=== PATIENT | female | born 1980 | race Caucasian/White ===

== ENCOUNTER 2020-03-30 09:54 | Outpatient (CLI) | payer OTHER, SELFPAY | END 2020-03-30 09:55 | disposition home or self-care (01) | LOC: ANHBWCAUD 09:55 | PROVIDERS: PCP Family Medicine; Visit Provider Family Medicine | DX: H90.3 Sensorineural hearing loss, bilateral (principal) | CPT/HCPCS: 92557; 92567 ==

== ENCOUNTER 2020-04-20 09:02 | Outpatient (RCR) | payer OTHER, SELFPAY | END 2020-07-19 23:59 | disposition home or self-care (01) | LOC: ANHBWCAUD 09:02 | PROVIDERS: PCP Family Medicine; Visit Provider Family Medicine | DX: Z46.1 Encounter for fitting and adjustment of hearing aid (principal) | CPT/HCPCS: V5160; V5261 ==

== ENCOUNTER 2020-09-02 13:55 | Outpatient (RCR) | payer OTHER, SELFPAY | END 2020-12-01 23:59 | disposition home or self-care (01) | LOC: ANHBWCAUD 13:55 | PROVIDERS: PCP Family Medicine; Visit Provider Family Medicine | DX: Z46.1 Encounter for fitting and adjustment of hearing aid (principal) | CPT/HCPCS: 99199 ==

== ENCOUNTER 2021-03-01 12:45 | Outpatient (RCR) | payer OTHER, SELFPAY | END 2021-05-30 23:59 | disposition home or self-care (01) | LOC: ANHBWCAUD 12:45 | PROVIDERS: PCP Family Medicine; Visit Provider Family Medicine | DX: Z46.1 Encounter for fitting and adjustment of hearing aid (principal) | CPT/HCPCS: 99199 ==

== ENCOUNTER 2024-06-18 11:22 | Outpatient (RCR) | payer OTHER, SELFPAY | END 2024-09-16 23:59 | disposition home or self-care (01) | LOC: ANHBWCAUD 11:22 | PROVIDERS: PCP Family Medicine; Visit Provider Family Medicine | DX: Z46.1 Encounter for fitting and adjustment of hearing aid (principal) | CPT/HCPCS: V5014 ==

== ENCOUNTER 2024-08-21 17:27 | Emergency (ER) | payer OTHER, SELFPAY ==
--- NOTE | 2024-08-21 17:29 | ED_ITS ---
HPI - Ear Problem General Chief complaint: Ear Stated complaint: Ear Pain Time Seen by Provider: 08/21/24 17:41 Source: patient and RN notes reviewed Mode of arrival: ambulatory Limitations: no limitations History of Present Illness HPI Narrative: 43-year-old female presents to the [facility] with left ear pain that started today. Reports a runny nose. States that she does not take anything that is [id number] because it does not work. Has a history of seasonal allergies Treatment prior to arrival: none Related Data Allergies Allergy/AdvReac Type Severity Reaction Status Date / Time No Known Allergies Allergy Unverified 08/21/24 17:43 Review of Systems Review of Systems: All systems reviewed & are unremarkable except as noted in HPI and below Constitutional: Constitutional: Reports no additional constitutional complaints ENT: Reports as per HPI, Reports otalgia and Reports nasal discharge Cardiovascular: Cardiovascular: Reports no additional cardiovascular complaints, Denies chest pain and Denies dyspnea Respiratory: Respiratory: Reports no additional respiratory complaints, Denies chest congestion, Denies cough and Denies dyspnea Musculoskeletal: Musculoskeletal: Reports no additional musculoskeletal complaints Integumentary/Breasts: Skin/Breast: Reports system reviewed and no additional complaints, except as docu PMFSH Surgical History Surgical History (Updated 08/21/24 @ 19:17 by Christie Bettencourt, DEO) History of appendectomy History of tonsillectomy and adenoidectomy Comments At the time of my signature, I reviewed and agree with the nursing past medical, surgical, social, and family history. There is no relevant family history pertinent to the patient complaint. Exam Const: General: cooperative, healthy appearing, comfortable, no acute distress, well developed, alert and well nourished Nutritional Appearance: well nourished and obese Orientation/consciousness: patient oriented x3 Limitations: no limitations HENMT: Head: normal to inspection Ears: hearing grossly normal bilaterally, external ears normal, TM normal on the right, mastoids normal, no periauricular adenopathy and Abnormal EAC present (Left) erythema, edema and EAC tenderness Face/Nose/Sinus: Normal external nose present, Normal nares present and Nasal discharge present clear bilateral Mouth: Yes Normal oral and palatal mucosa present, Yes lip normal, Yes tongue normal and Yes moist mucous membranes Throat: posterior oropharynx normal, uvula midline, postnasal drainage, tonsils absent and no uvular edema Eyes: General: appearance normal, both eyes and all related structures Alignment and Position: alignment normal Neck: Neck: normal visual inspection, full ROM, no lymphadenopathy and no meningeal signs Chest: Chest palpation & inspection: normal inspection of the chest Resp: Effort & Inspection: normal respiratory effort and able to speak in complete sentences Cardio: Rate: regular rate Skin: General skin exam: normal color and no rashes or lesions noted Neuro: General: patient oriented x3, gait normal, moves all extremities and no meningeal signs Cognition (Neuro): normal cognition Speech: normal speech Gait exam (Neuro): Normal gait present Extrem: General: normal to inspection, full ROM, capillary refill normal and normal gait Psych: Appearance: grossly normal and well kempt Mental Status: mental status grossly normal Speech and movement: Normal speech and movement present and Clear speech present Affect: normal affect Attitude: cooperative Course Course Level of Care: Express Care Visit Vital Signs Vital signs: Vital Signs Temperature 97.6 F 08/21/24 17:35 Pulse Rate 82 08/21/24 17:35 Respiratory Rate 16 08/21/24 17:35 Blood Pressure 131/61 08/21/24 17:35 Pulse Oximetry 97 08/21/24 17:35 Oxygen Delivery Room Air 08/21/24 17:35 Temperature 97.6 F 08/21/24 17:35 Pulse Rate 82 08/21/24 17:35 Respiratory Rate 16 08/21/24 17:35 Blood Pressure 131/61 08/21/24 17:35 Pulse Oximetry 97 08/21/24 17:35 Oxygen Delivery Room Air 08/21/24 17:35 Reviewed Medical Decision Making MDM Narrative Medical decision making narrative: Patient sitting comfortably in exam room. Nontoxic, vitals stable. Patient in no acute distress Patient presents for left ear discomfort and a runny nose. Symptoms started today. No treatment prior to arrival Left ear without acute findings, left ear TM intact without erythema, mild inflammation and mild redness noted to the ear canal. Patient appropriate for outpatient treatment with close follow-up Discharge instructions reviewed with patient, as well as provided in writing per nursing staff. The instructions also include specific and strict return/GO TO THE ER as well as f/u information. All questions have been answered, and the patient deny any further questions with discharge and discharge plan. Some parts of this dictation were generated by voice recognition software and may contain typographical and/or grammatical inaccuracies. Differential Diagnosis Differential Diagnosis: Otitis media, serous otitis, otitis externa Medical Records Medical records reviewed: Yes I reviewed the external patient's medical records. Vital Signs Vital Signs: Vital Signs Temperature 97.6 F 08/21/24 17:35 Pulse Rate 82 08/21/24 17:35 Respiratory Rate 16 08/21/24 17:35 Blood Pressure 131/61 08/21/24 17:35 Pulse Oximetry 97 08/21/24 17:35 Oxygen Delivery Room Air 08/21/24 17:35 Temperature 97.6 F 08/21/24 17:35 Pulse Rate 82 08/21/24 17:35 Respiratory Rate 16 08/21/24 17:35 Blood Pressure 131/61 08/21/24 17:35 Pulse Oximetry 97 08/21/24 17:35 Oxygen Delivery Room Air 08/21/24 17:35 Reviewed Lab Data Lab results reviewed: Yes I reviewed the patient's lab results. Labs: Reviewed Critical Care Time Critical Care Time Critical Care Time: No Discharge Plan Discharge Clinical Impression: Otitis externa Patient Disposition: Home Condition: Stable Instructions: Antibiotic Form, Swimmer's Ear (ED) Additional Instructions: Stop using Q-tips When you remove your hearing aids please wiped down with an alcohol pad. Follow-up with your primary care provider this week For new or worsening symptoms go directly to the emergency room Patient Language: Lebanese Prescriptions: New ciprofloxacin-dexamethasone 0.3-0.1 % drops,suspension 5 drp LEFT EAR Q12H 7 Days Qty: 7.5 0RF Follow-up/Referrals: UNKNOWN,DOCTOR [Non-Staff] - Stand Alone Forms: Work/School Release IP Time of Disposition: 17:51
[2024-08-21 17:35] VITALS: BP 131/61; PULSE 82; RESP 16; TEMP 36.4; O2SAT 97
== END 2024-08-21 17:53 | disposition home or self-care (01) ==
PROVIDERS: Emergency Provider Nurse Practitioner
DX: H60.92 Unspecified otitis externa, left ear (principal)
CPT/HCPCS: 99213; G0463

== ENCOUNTER 2024-10-16 07:29 | Emergency (ER) | payer OTHER, SELFPAY ==
--- NOTE | ~2024-10-16 | XR_ITS ---
XR chest 2V Ordering provider: ISOTOPE HYDROLOGIST PHYSICIAN History: 44 years Female with . chest pain, sob . Comparison: None. FINDINGS: MEDIASTINUM: The cardiac silhouette is not enlarged. LUNGS: No infiltrates, effusions or pneumothorax. OTHER: No free air under the diaphragm. IMPRESSION: No acute cardiopulmonary pathology. Reviewed, dictated and finalized at location A.
--- NOTE | ~2024-10-16 | US_ITS ---
EXAMINATION: US venous doppler [facility] DATE: 10/16/2024 10:18 INDICATION: Bilateral lower limb pain and swelling TECHNIQUE: Grayscale ultrasound images without and with compression and Doppler ultrasound images of the bilateral lower extremity veins were obtained. COMPARISON: None. FINDINGS: The visualized portions of right common femoral vein, profunda (deep) femoral vein, femoral vein, pop liteal vein, posterior tibial veins, peroneal veins and greater saphenous vein outflow are patent. The visualized portions of left common femoral vein, profunda femoral vein, femoral vein, popliteal v ein, posterior tibial veins, peroneal veins and greater saphenous vein outflow are patent. IMPRESSION: 1. No deep venous thrombosis in either lower limb. Reviewed, dictated and finalized at location A.
--- NOTE | 2024-10-16 07:34 | ECG_ITS ---
Test Date: 2024-10-16 07:39:50 Measurements Intervals [place] Rate: 83 P: 22 MA: 131 QRS: -15 QRSD: 101 T: 45 QT: 371 QTc: 437 Interpretive Statements SINUS RHYTHM MINIMAL Q WAVES- LAT/HIGH LAT LEADS BASELINE ARTIFACT- I, II, III, AVR, AVL, AVF BORDERLINE ECG No previous ECG available for comparison Electronically Signed On 10-16-2024 07:47:15 CDT by Esteban Lopez D.O.
[2024-10-16 07:36] VITALS: BP 134/63; PULSE 83; RESP 16; TEMP 36.5; O2SAT 96
[2024-10-16 07:42] VITALS: O2SAT 96
[2024-10-16] MEDS: ASPIRIN 81 MG CHEWABLE TABLET 324 MG PO (07:47)
--- NOTE | 2024-10-16 07:48 | PC.NURSE ---
pt reports having been hiking recently and finding many ticks throughout body, having found one in my hair just this morning
[2024-10-16 07:56] LABS: Basophils Percent Auto 0.2 % (0.2-1.2); Eosinophils Absolute Auto 0.2 K/mm3 (0-0.3); Eosinophils Percent Auto 1.9 % (0-4.4); Hematocrit 45.5 % (37.0-47.0); Hemoglobin 14.9 g/dL (12.0-15.0); Immature Granulocyte Percent A 0.8 % (0-0.5); Lymphocytes Absolute Auto 2.86 K/mm3 (0.9-3.2); Lymphocytes Percent Auto 23.1 % (18.3-44.2); Mean Corpuscular HGB Conc 32.7 g/dl (32-36); Mean Corpuscular Hemoglobin 29.1 pg (26-34); Mean Corpuscular Volume 88.9 fl (80-100); Mean Platelet Volume 11.6 fl (7.4-10.4); Monocytes Absolute Auto 0.9 K/mm3 (0.1-0.6); Monocytes Percent Auto 7.5 % (2.6-8.5); Neutrophils Absolute Auto 8.2 K/mm3 (1.3-6.7); Neutrophils Percent Auto 66.5 % (45.5-73.1); Platelet Count Result 226 k/mm3 (150-375); Red Blood Count 5.12 M/mm3 (4.2-5.4); Red Cell Distribution Width 14.4 % (11.5-14.5); White Blood Count 12.4 K/mm3 (4.5-10.0)
[2024-10-16 08:06] LABS: Alanine Aminotransferase 76 U/L (6-35); Alkaline Phosphatase 93 U/L (38-126); Anion Gap 9 mmol/L (4-12); Aspartate Amino Transferase 63 U/L (14-36); Bilirubin,Total 0.3 mg/dL (0.2-1.3); Blood Urea Nitrogen 16 mg/dL (7-17); Calcium 8.8 mg/dL (8.4-10.2); Carbon Dioxide 25 mmol/L (22-30); Chloride 106 mmol/L (98-107); Estimated CRCL calculation 117 ml/min; Estimated Glomerular Filt Rate > 60; Glucose 105 mg/dL (65-110); Lipase 38 U/L (23-300); Potassium 3.9 mmol/L (3.4-5.0); Sodium 140 mmol/L (137-145); Total Protein 6.9 g/dL (6.3-8.2)
--- NOTE | 2024-10-16 08:11 | ED_ITS ---
HPI - Chest Pain General Chief Complaint: Chest Pain Stated Complaint: chest pain Time Seen by Provider: 10/16/24 08:11 Source: patient Mode of arrival: ambulatory Limitations: no limitations History of Present Illness HPI narrative: 44 years old white female drove herself to the emergency room complaining of pain in both feet. Patient is telling me that she was camping, sprained left ankle, 1 day later she have a swelling legs from knees down bilaterally, went [facility] and was diagnosed of edema secondary to gravity, 1 day later got dizzy with lightheadedness went back [facility], was not happy and signed against medical advice, later started having left upper chest pain not feeling well, went to [facility] yesterday and was told everything looks good, drove herself to our emergency room today because of pain both feet. Currently She denies any fever, chills, nausea, vomiting, chest pain, or shortness of breath Related Data Allergies Allergy/AdvReac Type Severity Reaction Status Date / Time No Known Allergies Allergy Unverified 08/21/24 17:43 Review of Systems 2 Review of Systems: All systems reviewed & are unremarkable except as noted in HPI and below PMFSH Surgical History Surgical History History of appendectomy History of tonsillectomy and adenoidectomy Exam 2 Narrative: General appearance: Well-developed, well-nourished Skin: Normal color, 1+ edema lower extremity bilaterally up to the knees Head: Normocephalic, nontraumatic Eyes: Clear conjunctiva ENT: Oropharynx normal, ears normal, nose normal Neck: Supple, nontender Chest and respiratory: Airway patent, no respiratory distress, no accessory muscle use Heart: Regular rate/rhythm Abdomen: Soft, nontender, no organomegaly, quiet bowel sounds Vascular: Normal peripheral pulses, normal capillary refill. Musculoskeletal: Normal range of motion, nontender back Neurologic: Alert and oriented ?3, WELDING MACHINE SETTER is normal as tested, no gross motor deficit Course Course Emergency Course: Patient came with multiple symptoms, has been to 3 emergency rooms in the last 4 days, Vital signs are stable Physical examination positive for 1+ edema lower extremity bilaterally otherwise insignificant except morbidly obese Differential diagnosis include leg edema, congestive heart failure, deep vein thrombosis, pulmonary embolism, anxiety like symptoms, electrolyte imbalance, dehydration Blood workup today includes CBC, CMP, troponin, D-dimer, pro BMP showed Chest x-ray showed EKG showed Vital Signs Vital signs: Vital Signs Temperature 36.5 C 10/16/24 07:36 Pulse Rate 83 10/16/24 07:36 Respiratory Rate 16 10/16/24 07:36 Blood Pressure 134/63 10/16/24 07:36 Pulse Oximetry 96 10/16/24 07:36 Oxygen Delivery Room Air 10/16/24 07:36 Temperature 36.5 C 10/16/24 07:36 Pulse Rate 86 10/16/24 11:49 Respiratory Rate 18 10/16/24 11:49 Blood Pressure 147/72 H 10/16/24 11:49 Pulse Oximetry 98 10/16/24 11:49 Oxygen Delivery Room Air 10/16/24 07:42 MDM - Chest Pain MDM Narrative Medical decision making narrative: Patient came with feet pain and swelling legs Vital signs are stable Physical examination showing 1+ edema lower extremity bilaterally, morbidly obese Differential diagnosis include dependent edema, congestive heart failure, renal failure, hepatic failure, deep vein thrombosis, electrolyte imbalance, dehydration Blood workup today includes CBC, CMP, troponin, pro BMP, D-dimer showed WBC 12.4, D-dimer 0.5 AST 63, ALT 76, pro BMP 156 Chest x-ray showed no acute abnormality Venous Doppler bilaterally of the lower extremity showed no deep vein thrombosis Diagnosis dependent edema, The pt was discharged to home.the pt,s condition upon discharge was fair,education was provided to the pt in reference to the final impression,discharge study results,treatment,prognosis and need for follow up . Lab Data 10/16/24 07:51 10/16/24 07:51 Labs: Lab Results 10/16/24 10/16/24 Range/Units 07:51 11:08 WBC 12.4 H (4.5-10.0) K/mm3 RBC 5.12 (4.2-5.4) M/mm3 Hgb 14.9 (12.0-15.0) g/dL Hct 45.5 (37.0-47.0) % MCV 88.9 (80-100) fl MCH 29.1 (26-34) pg MCHC 32.7 (32-36) g/dl RDW 14.4 (11.5-14.5) % Plt Count 226 (150-375) k/mm3 MPV 11.6 H (7.4-10.4) fl Immature Gran % (Auto) 0.8 H (0-0.5) % Neut % (Auto) 66.5 (45.5-73.1) % Lymph % (Auto) 23.1 (18.3-44.2) % [place] % (Auto) 7.5 (2.6-8.5) % Eos % (Auto) 1.9 (0-4.4) % Baso % (Auto) 0.2 (0.2-1.2) % Lymph # (Auto) 2.86 (0.9-3.2) K/mm3 [place] # (Auto) 0.9 H (0.1-0.6) K/mm3 Eos # (Auto) 0.2 (0-0.3) K/mm3 Baso # (Auto) 0.0 (0.0-0.1) K/mm3 Abs Immat Gran (auto) 0.10 H (0.00-0.031) K/mm3 Absolute Neuts (auto) 8.2 H (1.3-6.7) K/mm3 Absolute Nucleated RBC 0.000 (0.0-0.012) K/mm3 Nucleated RBC % 0.0 (0.0-0.2) % PT 11.6 (11.1-14.7) Seconds INR 0.8 APTT 32.6 (22.3-36.8) Seconds D-Dimer 0.50 H (<0.48) ug/mL Sodium 140 (137-145) mmol/L Potassium 3.9 (3.4-5.0) mmol/L Chloride 106 (98-107) mmol/L Carbon Dioxide 25 (22-30) mmol/L Anion Gap 9 (4-12) mmol/L BUN 16 (7-17) mg/dL Creatinine 0.91 (0.7-1.0) mg/dL Estim Creat Clear Calc 117 ml/min Estimated GFR > 60 (59 - ) Glucose 105 (65-110) mg/dL Calcium 8.8 (8.4-10.2) mg/dL Total Bilirubin 0.3 (0.2-1.3) mg/dL AST 63 H (14-36) U/L ALT 76 H (6-35) U/L Alkaline Phosphatase 93 (38-126) U/L Troponin I < 0.012 < 0.012 (0.000-0.034) ng/mL NT-Pro-B Natriuret Pep 156 H (19.9-100) pg/mL Total Protein 6.9 (6.3-8.2) g/dL Albumin 4.0 (3.5-5.1) g/dL Lipase 38 (23-300) U/L Discharge Plan Discharge Clinical Impression: Dependent edema Patient Disposition: Home Condition: Stable Instructions: Edema (ED) Additional Instructions: Return if symptoms are worsening , call your family physician for appointment, take Tylenol as as needed for aches and pain, continue home medications. Keep leg elevated, compression stocking Patient Language: Sami Prescriptions: No Action ciprofloxacin-dexamethasone 0.3-0.1 % drops,suspension 5 drp LEFT EAR Q12H 7 Days Qty: 7.5 0RF Follow-up/Referrals: PHYSICIAN,BICYCLE DESIGNER [Primary Care Provider] - Janes Lux MD [Physician] - 10/20/24
--- NOTE | 2024-10-16 08:16 | PC.NURSE ---
lab called to add on BNP and D Dimer
[2024-10-16 08:18] LABS: Troponin I < 0.012 ng/mL (0.000-0.034)
[2024-10-16 08:42] LABS: INR 0.8; Prothrombin Time 11.6 Seconds (11.1-14.7)
[2024-10-16 08:43] LABS: NT Pro B Type Natriuretic Pept 156 pg/mL (19.9-100)
[2024-10-16 08:44] LABS: Partial Thromboplastin Time 32.6 Seconds (22.3-36.8)
--- NOTE | 2024-10-16 10:58 | ECG_ITS ---
Test Date: 2024-10-16 11:02:31 Measurements Intervals [place] Rate: 74 P: 62 NV: 147 QRS: -8 QRSD: 106 T: 55 QT: 409 QTc: 456 Interpretive Statements SINUS RHYTHM INCOMPLETE RIGHT BUNDLE BRANCH BLOCK MINIMAL Q WAVES- ANTEROLAT/HIGH LAT LEADS CONSIDER INFERIOR INFARCT, AGE INDETERMINATE BASELINE ARTIFACT- I, III, AVR, AVL, AVF ABNORMAL ECG Compared to ECG 10/16/2024 07:39:50 NO SIGNIFICANT CHANGE Electronically Signed On 10-16-2024 11:05:41 CDT by Esteban Lopez D.O.
[2024-10-16 11:37] LABS: Troponin I < 0.012 ng/mL (0.000-0.034)
[2024-10-16 11:49] VITALS: BP 147/72; PULSE 86; RESP 18; O2SAT 98
== END 2024-10-16 12:12 | disposition home or self-care (01) ==
PROVIDERS: Emergency Provider Emergency Medicine
DX: R60.0 Localized edema (principal); E66.01 Morbid (severe) obesity due to excess calories; Z68.41 Body mass index [BMI] 40.0-44.9, adult; I45.10 Unspecified right bundle-branch block; R94.31 Abnormal electrocardiogram [ECG] [EKG]
CPT/HCPCS: 36415; 71046; 80053; 83690; 83880; 84484; 85025; 85380; 85610; 85730; 93005; 93970; 99284; A9270

== ENCOUNTER 2025-03-10 09:48 | Emergency (ER) | payer SELFPAY ==
[2025-03-10] VITALS (8 sets, daily range): BP systolic 103–156; BP diastolic 71–87; PULSE 83–99; RESP 16–25; TEMP 36.6; O2SAT 92–96
--- NOTE | ~2025-03-10 | XR_ITS ---
EXAMINATION: XR chest 2V, 03/10/2025 10:45 DEMAND PLANNING ANALYST HISTORY: SOB COMPARISON: No comparisons available. Technique: 2 views obtained. Findings: The lungs are clear, no effusion. No pneumothorax. Heart is normal size. Mediastinal and hilar contours are within normal limits. Bony thorax no acute abnormality. Impression: No acute cardiopulmonary abnormality. Reviewed, dictated and finalized at location P. [place] PLANNING ANALYST Impression: No acute cardiopulmonary abnormality.
--- NOTE | 2025-03-10 10:37 | ECG_ITS ---
Test Date: 2025-03-10 10:58:24 Measurements Intervals [place] Rate: 84 P: 55 MI: 141 QRS: 5 QRSD: 116 T: 62 QT: 378 QTc: 449 Interpretive Statements SINUS RHYTHM POSSIBLE LATERAL MYOCARDIAL INFARCTION [30 ms Q WAVE IN I/aVL/V5/V6], OF INDETERMINATE AGE ABNORMAL ECG Compared to ECG 10/16/2024 11:02:31 Incomplete right bundle-branch block no longer present Myocardial infarct finding still present Electronically Signed On 03-10-2025 15:54:10 TAIL TRIMMER by Faraz Meng M.D.
[2025-03-10 10:59] LABS: Hematocrit 44.4 % (37.0-47.0); Hemoglobin 14.8 g/dL (12.0-15.0); Immature Granulocyte Percent A 1.2 % (0-0.5); Lymphocytes Absolute Auto 3.25 K/mm3 (0.9-3.2); Mean Corpuscular HGB Conc 33.3 g/dl (32-36); Mean Corpuscular Hemoglobin 30.1 pg (26-34); Mean Corpuscular Volume 90.2 fl (80-100); Nucleated Red Blood Cells Absolute Auto 0.000 K/mm3 (0.0-0.012); Nucleated Red Blood Cells Perc 0.0 % (0.0-0.2); Platelet Count Result 245 k/mm3 (150-375); Red Blood Count 4.92 M/mm3 (4.2-5.4); White Blood Count 13.3 K/mm3 (4.5-10.0)
[2025-03-10 11:13] LABS: Alanine Aminotransferase 49 U/L (6-35); Albumin Level 4.3 g/dL (3.5-5.1); Alkaline Phosphatase 147 U/L (38-126); Anion Gap 7 mmol/L (4-12); Aspartate Amino Transferase 37 U/L (14-36); Bilirubin,Total 0.5 mg/dL (0.2-1.3); Blood Urea Nitrogen 12 mg/dL (7-17); Calcium 8.8 mg/dL (8.4-10.2); Carbon Dioxide 23 mmol/L (22-30); Chloride 107 mmol/L (98-107); Estimated CRCL calculation 96 ml/min; Estimated Glomerular Filt Rate > 60; Glucose 94 mg/dL (65-110); Potassium 4.3 mmol/L (3.4-5.0); Sodium 137 mmol/L (137-145); Total Protein 7.6 g/dL (6.3-8.2)
[2025-03-10 11:35] LABS: Influenza A QL RT-PCR Negative (Negative); Influenza B QL RT-PCR Negative (Negative); RSV RNA, RT-PCR Negative (Negative); SARS-CoV-2 RNA PCR Negative (Negative)
--- NOTE | 2025-03-10 13:08 | ED_ITS ---
HPI - URI/Sore Throat General Chief Complaint: Upper Respiratory Infection Stated Complaint: wheezing can't catch breath Time Seen by Provider: 03/10/25 10:38 Source: patient Mode of arrival: ambulatory Limitations: no limitations History of Present Illness HPI Narrative: Patient is a 44 y/o female who presents to the ED with c/o SOB. Patient reports she has been having upper respiratory symptoms for the past 4 days including cough, congestion, wheezing, sinus pressure, shortness of breath. States symptoms have been worsening. She is a smoker. Reports history of COPD/asthma. States she has been using her inhalers at home without improvement. 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 Denies chest pain or fevers. Related Data Allergies Allergy/AdvReac Type Severity Reaction Status Date / Time No Known Allergies Allergy Unverified 08/21/24 17:43 Review of Systems 2 Review of Systems: All systems reviewed & are unremarkable except as noted in HPI. All systems reviewed & are unremarkable except as noted in HPI and below PMFSH Surgical History Surgical History History of appendectomy History of tonsillectomy and adenoidectomy Exam 2 Narrative: GENERAL: Well appearing, well-nourished, non-toxic, in no acute distress. HEAD: Normocephalic, atraumatic. RESPIRATORY: Airway patent, respirations mildly tachypneic. Diffuse expiratory wheezing all lung buenrostro. Rhonchi in bases bilaterally CARDIOVASCULAR: Regular rate and rhythm without murmurs, rubs, or gallops. MUSCULOSKELETAL: Moves all extremities. No gross deformities. SKIN: Warm, dry, normal color. NEURO: A&O X3. Speech clear. Cranial nerves II-XII grossly intact. Steady gait. No ataxic movements. PSYCHIATRIC: Appropriate mood and affect. Normal interaction. Course Vital Signs Vital signs: Vital Signs Temperature 97.9 F 03/10/25 09:51 Pulse Rate 99 03/10/25 09:51 Respiratory Rate 22 H 03/10/25 09:51 Blood Pressure 153/75 H 03/10/25 09:51 Pulse Oximetry 92 03/10/25 09:51 Oxygen Delivery Room Air 03/10/25 09:51 Temperature 97.9 F 03/10/25 09:51 Pulse Rate 83 03/10/25 12:45 Respiratory Rate 16 03/10/25 12:45 Blood Pressure 129/74 03/10/25 12:45 Pulse Oximetry 96 03/10/25 12:45 Oxygen Delivery Room Air 03/10/25 10:52 MDM - URI/Sore Throat MDM Narrative Medical decision making narrative: Patient presented to ED with several day history of URI symptoms, shortness of breath. Patient mildly tachycardic upon arrival. Oxygen 92-96% on room air. Vitals are otherwise stable. Afebrile here. Laboratory studies were initiated. Notable for leukocytosis of 13.3. Minimal transaminitis. Viral swabs negative. Chest x-ray clear. EKG without significant abnormalities. No concerning ST changes. At the time of my evaluation, patient had been waiting in the ED for a couple of hours. She was very frustrated by wait time. Visibly frustrated with my questioning. I discussed performing hour long nebulizer treatment and initiating steroids for suspected COPD exacerbation. Discussed obtaining additional blood work. Patient declined. 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 States she does not want even the steroids. Discussed a shorter 20 minute nebulizer treatment but patient declined. Declined any further workup at this time. States she is just going to leave. Again I apologized for her prolonged wait time and that there were several critical patients we were managing in the ED. Patient voiced understanding but is adamant about leaving at this time. While still speaking to patient in the room, patient ambulated out of the facility. Ambulatory w/ steady gait. This will be considered an elopement. Medical Records Attestation: I reviewed the patient's medical records. Lab Data Attestation: I reviewed the patient's lab results. 03/10/25 10:48 03/10/25 10:48 Labs: Lab Results 03/10/25 Range/Units 10:48 WBC 13.3 H (4.5-10.0) K/mm3 RBC 4.92 (4.2-5.4) M/mm3 Hgb 14.8 (12.0-15.0) g/dL Hct 44.4 (37.0-47.0) % MCV 90.2 (80-100) fl MCH 30.1 (26-34) pg MCHC 33.3 (32-36) g/dl RDW 14.0 (11.5-14.5) % Plt Count 245 (150-375) k/mm3 MPV 11.5 H (7.4-10.4) fl Immature Gran % (Auto) 1.2 H (0-0.5) % Neut % (Auto) 65.6 (45.5-73.1) % Lymph % (Auto) 24.4 (18.3-44.2) % [place] % (Auto) 6.8 (2.6-8.5) % Eos % (Auto) 1.7 (0-4.4) % Baso % (Auto) 0.3 (0.2-1.2) % Lymph # (Auto) 3.25 H (0.9-3.2) K/mm3 [place] # (Auto) 0.9 H (0.1-0.6) K/mm3 Eos # (Auto) 0.2 (0-0.3) K/mm3 Baso # (Auto) 0.0 (0.0-0.1) K/mm3 Abs Immat Gran (auto) 0.16 H (0.00-0.031) K/mm3 Absolute Neuts (auto) 8.8 H (1.3-6.7) K/mm3 Absolute Nucleated RBC 0.000 (0.0-0.012) K/mm3 Nucleated RBC % 0.0 (0.0-0.2) % Sodium 137 (137-145) mmol/L Potassium 4.3 (3.4-5.0) mmol/L Chloride 107 (98-107) mmol/L Carbon Dioxide 23 (22-30) mmol/L Anion Gap 7 (4-12) mmol/L BUN 12 (7-17) mg/dL Creatinine 0.81 (0.7-1.0) mg/dL Estim Creat Clear Calc 96 ml/min Estimated GFR > 60 (59 - ) Glucose 94 (65-110) mg/dL Calcium 8.8 (8.4-10.2) mg/dL Total Bilirubin 0.5 (0.2-1.3) mg/dL AST 37 H (14-36) U/L ALT 49 H (6-35) U/L Alkaline Phosphatase 147 H (38-126) U/L Total Protein 7.6 (6.3-8.2) g/dL Albumin 4.3 (3.5-5.1) g/dL Influenza A (RT-PCR) Negative (Negative) Influenza B (RT-PCR) Negative (Negative) RSV (RT-PCR) Negative (Negative) SARS-CoV-2 RNA (RT-PCR) Negative (Negative) Imaging Data Attestation: I personally reviewed and interpreted this imaging study as follows: Radiologist's impression: ITS Impressions Chest X-Ray 03/10/25 10:57 Impression: No acute cardiopulmonary abnormality. ECG Data EKG #1: Attestation: I personally reviewed and interpreted this ECG as follows: ECG completion date: 03/10/25 ECG completion time: 10:58 EKG Interpretation: normal rate (84), sinus rhythm and non-specific ST changes Discharge Plan Discharge Clinical Impression: Shortness of breath Upper respiratory infection Qualifiers: URI type: unspecified URI Qualified Code(s): J06.9 - Acute upper respiratory infection, unspecified Asthma exacerbation Qualifiers: Asthma severity: unspecified severity Asthma persistence: unspecified Qualified Code(s): J45.901 - Unspecified asthma with (acute) exacerbation Patient Disposition: Elopement After Seen by Prov Patient Language: Samoan Prescriptions: No Action ciprofloxacin-dexamethasone 0.3-0.1 % drops,suspension 5 drp LEFT EAR Q12H 7 Days Qty: 7.5 0RF Follow-up/Referrals: PHYSICIAN,MESS ATTENDANT CREW [Primary Care Provider, Internal Medicine]
--- NOTE | 2025-03-10 13:21 | PC.NURSE ---
pt walked out before being seen by provider. pt stated to this RN I am not waiting for this hour long breathing treatment, i have to get my kids of the bus. pt educated by this RN that pt would benefit from breathing treatment. pt ambulated to exit with steady gate. pt A&Ox4.
== END 2025-03-10 13:21 | disposition left against medical advice (07) ==
LOC: ANHED 13:14
PROVIDERS: Emergency Medicine; Emergency Provider Physician Assistant
DX: J45.901 Unspecified asthma with (acute) exacerbation (principal); J06.9 Acute upper respiratory infection, unspecified; R94.31 Abnormal electrocardiogram [ECG] [EKG]; Z20.822 Contact with and (suspected) exposure to COVID-19
CPT/HCPCS: 36415; 71046; 80053; 85025; 87637; 93005; 99283